=== PATIENT | female | born 1945 | race Caucasian/White ===

== ENCOUNTER → 2017-01-06 | Outpatient (CLI) | payer OTHER, BC ==
[~2017-01-06] MED LIST: NS 100 ML IV 100 ML IV ONE
[2017-01-06 10:06] LABS: CREATININE 0.87 mg/dL (0.55-1.02)
--- NOTE | 2017-01-09 13:44 | CT ---
HISTORY: Precordial chest pain and dyspnea Cardiac CTA with calcium scoring. Technique: Multiple axial images of the chest were obtained on a [address] from the aortic arch to the base of the heart with retrospective cardiac gating. Noncontrast evaluation of the heart was performed for calcium scoring with prospective gating. After the administration of in travenous iodinated contrast retrospective gating of the heart was performed per vessel analysis. C ardiac functional analysis was performed with segmentation of the cardiac cycle. 3D reconstructions and vessel analysis were performed on a vital imaging workstation. AEC was utilized. Findings: A total calcium score of 152 is observed. The patient is between the 50 and 75th percentile for age and sex. Definite, at least moderate, atherosclerotic plaque is identified with mild Coronary nory ry disease highly likely and significant narrowings possible. There is a right dominant system. There is a cardiac pacing device which obscures portions of the RC A. There is no high-grade stenosis within the visualized RCA. The left main is patent. There is a ra mus intermedius. No significant flow-limiting stenosis is identified within the left circumflex. How ever, there is moderate atherosclerotic disease within the proximal and mid LAD with positive remode lling noted but with short segmental 50-70% stenosis in the distal aspect of the proximal LAD. Functional analysis of the left ventricle: ? Ejection fraction 66 %. ? End-diastolic volume 88 mL ? End-systolic volume 30 mL. ? Stroke volume 58 mL ? Normal cardiac output of 112 L/min Extracardiac findings: No pathologically enlarged lymphadenopathy can be observed. The aortic arch is unremarkable in its appearance with normal vascular configuration. No significant pericardial effusion can be identifie d. The visualized portions of the lung parenchyma are unremarkable. No lytic or blastic lesions ca n be identified within the visualized bony thorax. There is a small hiatal hernia. IMPRESSION: Elevated Coronary calcium score with decreased stroke volume and myocardial mass in the setting of a cardiac pacing device which obscures portions of the RCA and with suspected at least moderate sever ity proximal LAD stenosis for which conventional angiography should be considered. Reported By:
== END ==
LOC: RAD 09:01
PROVIDERS: ATTEND Nuclear Medicine Nuclear Cardiology
DX: R07.2 Precordial pain (principal); R06.09 Other forms of dyspnea
CPT/HCPCS: 36415; 75574; 82565; 84520; A4222